=== PATIENT | male | born 1940 | race Caucasian/White ===

== ENCOUNTER → 2017-01-10 | Outpatient (REF) | payer MEDICARE, OTHER | LOC: M LAB REF 12:39 | PROVIDERS: ATTEND Nurse Practitioner Adult Health | DX: E83.52 Hypercalcemia (principal) ==

== ENCOUNTER → 2017-07-19 | Outpatient (REF) | payer MEDICARE, OTHER ==
[~2017-07-19] MED LIST: ASPRIN PO; COQ1200C2 PO; CYMB60CA3 PO; EYE-TAB2 PO; FISH500C PO; FLOM5CAP PO; LIPI20TA PO; MAGN500C PO; MULTTAB50 PO; VITA10006 PO; VITA200016 PO; VITATAB11 PO; [UNRECOGNIZED DRUG - CODE] PO
== END ==
LOC: M LAB REF 14:57
PROVIDERS: ATTEND Nurse Practitioner Adult Health
DX: E83.52 Hypercalcemia (principal); Z98.84 Bariatric surgery status

== ENCOUNTER 2017-09-07 10:14 | Day surgery (SDC) | payer MEDICARE, OTHER ==
--- NOTE | 2017-09-01 14:32 | CR ---
DATE OF CONSULTATION: 08/31/2017 Dr. Eneida Allen dictating a preoperative consultation on Андрей Burgos for Dr. Garcia for bilateral cataract extractions. Dear Jose: Thank you for asking me to see . Андрей Burgos in consultation prior to his bilateral cataract extractions. As you know, Mr. Ambrosio has a past medical history of CAD but denies any chest pain, palpitations, syncope or presyncope. Patient has had bilateral knee replacements, still very active, without limitations, keeping up with his grandchildren. He denies any chest pain, palpitations, syncope or presyncope. Patient has depression. He is on Cymbalta for this and feels it is well controlled. Patient has BPH. He is on Flomax. He denies any change in urologic symptoms. Patient had bariatric surgery 2007. He lost over 100 pounds. He has regained about 10 pounds. Tries to adhere to a healthy diet, exercise. REVIEW OF SYSTEMS: Otherwise negative. Denying any fevers or chills, chest pain or shortness of breath, nausea, vomiting. PAST MEDICAL HISTORY: 1. CAD status post anterior wall myocardial infarction (CO) followed by percutaneous transluminal coronary angioplasty (PTCA) of the left anterior descending (LAD). Last nuclear stress test 01/28/2017 showed no inducible disease, left ventricular ejection fraction (LVEF) 48%. Study was considered normal. 2. Hyperlipidemia. 3. Gastric bypass surgery 2007. 4. Bilateral total knee arthroplasties (TKAs) 2005. 5. Status post cholecystectomy. 6. Bilateral carpal tunnel. 7. Perforated right eardrum times three. 8. Status post appendectomy. 9. Skin cancer (CA) status post resection from lip. 10. Depression. MEDICATIONS: - aspirin 325 mg daily - coenzyme Q10 200 mg daily - Cymbalta 60 mg daily - ferrous sulfate 325 mg daily - fish oil 1000 mg two twice a day - Flomax 0.4 mg daily - ginkgo biloba 60 mg two daily - Lidoderm as needed, back pain - Lipitor 20 mg daily - magnesium 500 mg 1-2 a day - multivitamin two daily - Savision two daily - vitamin C 1000 mg daily - vitamin D 2000 two daily DRUG ALLERGIES: PENICILLIN, SULFA, MYCIN, which I assume is the ERYTHROMYCIN CLASS. 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 Never smoked. He occasionally consumes alcohol. FAMILY HISTORY: Mother in her 80s from lung cancer. Father in his 70s from lung cancer. He has one sister with chronic obstructive pulmonary disease (COPD). One brother who from complications of alcoholism and heart disease. PHYSICAL EXAMINATION: No acute distress. Vital signs are blood pressure 176/86, recheck 138/88, heart rate is 58. Weight is 190 with a body mass index (BMI) of 30, oxygen saturation after exertion is 98%. HEENT examination: Head is normocephalic. Neck is supple. Pupils equal, reactive to light. Extraocular movements are intact. He wears eye glasses and hearing aids. No thyromegaly, jugular venous distention (JVD), carotid bruits. Respiratory: Clear to auscultation, resonant to percussion. Cardiovascular: Regular rate and rhythm. No murmur, rub or gallop. Abdomen: Normoactive bowel sounds, soft, nontender. No hepatosplenomegaly. Extremities: Some early osteoarthritis (OA) changes of the lower extremities. Right upper extremity has an engorged tick at the shoulder level. Neurologically intact. LABORATORY DATA: 07/19/2017, patient had a B12 level of 1675, a normal CBC, med profile except for calcium of 10.2, liver except for bilirubin of 1.6, lipids except for a total cholesterol 108. Vitamin D is 61. His intact PTH is 48.5. EKG done today in my office shows sinus bradycardia, rate of 58, axis of 8 degrees. First-degree atrioventricular (AV) block. Normal QRS, QTc. Late R-wave progression with repolarization changes, but otherwise no atrioventricular abnormalities. The EKG is unchanged from previous EKG done 01/10/2017. IMPRESSION: Mr. Андрей Burgos, 76-year-old gentleman, known history of CAD, hyperlipidemia, age, has no other cardiovascular risk factors and is felt to be at low risk for cardiovascular complications from the proposed surgical intervention and is felt to be optimized. Patient risk can be further minimized by the following. 1. Hyperlipidemia. Take statin as usual the evening prior to surgery. Hold all supplements including aspirin and fish oil morning of surgery. 2. CAD. Clinically asymptomatic. Stress testing approximately 6 months ago showed no inducible disease. EKG is unchanged. As of above, hold all vitamin supplements including aspirin morning of surgery. Take statin as usual the evening prior to surgery. 3. Depression. Take Cymbalta after surgery as usual. Hold morning of surgery. 4. Low back pain. Continue as-needed use of Lidoderm. 5. BPH. Take Flomax as usual evening prior to surgery. 6. Status post gastric bypass surgery. Hold all vitamins morning of surgery. Of note, his B12 supplement was discontinued after the above labs. 7. Tick. Removed without complication during exam. Patient given prophylactic dose of doxycycline 200 mg by mouth times one. Patient will call if he develops any systemic symptoms or target lesion. Thank you for this consultation. Please call with any questions or concerns.
[~2017-09-07] VITALS: Ht 170.2 cm; Wt 85.7 kg
[~2017-09-07 10:14] MED LIST changes: +ACETAMINOPHEN 325 MG TAB PO PRN; +BSS with VANC/TOB/EPI for EYE CASES IR ONE; +CYCLOPENTOLATE 2% OPHTH SOLN 2ML BTL OS ONE; +LIDOCAINE 3.5 % 1ML OPHTH TOPICAL GEL OU ONE; +OFLOXACIN 0.3 % (OCUFLOX) OPTH SOL 5ML OS ONE; +PHENYLEPHRINE 2.5% OPHTH SOL 2ML OS ONE; +PROPARACAINE 0.5% OPHTH SOL 15ML OS PRN; +TROPICAMIDE 1% OPHTH SOLN 2ML OS ONE
[2017-09-07] MEDS ORDERED: TRIMETHOBENZAMIDE 300 MG CAP PO PRN (10:30)
[2017-09-07] MEDS ORDERED: KETOROLAC 0.5% OPHTH SOLN OS ONE (10:30)
[2017-09-07] MEDS ORDERED: TRIAMCINOLONE PRES FR 40 MG/ML 1ML(TRIESENCE)(OR EYE ONLY)(J3300 PER 1MG) As Ordered ONE (11:02)
[2017-09-07] MEDS ORDERED: POVIDONE-IODINE 5% OPHTH PREP SOL 30ML As Ordered ONE (11:02)
[2017-09-07] MEDS ORDERED: LIDOCAINE 1% SDV 5 ML VIAL As Ordered ONE (11:02)
[2017-09-07] MEDS ORDERED: MOXIFLOXACIN IN BSS 0.25MG/0.25ML INTRACAMERAL INJ (OR EYE ONLY)(J2280) As Ordered ONE (11:03)
[2017-09-07] MEDS ORDERED: HEALON DUET (HEALON 10MG/ML 0.55ML & HEALON ENDOCOAT 30MG/ML 0.85ML) As Ordered ONE (11:03)
[2017-09-07] MEDS ORDERED: MIDAZOLAM INJ 2 MG/2 ML VIAL (J2250) As Ordered ONE (11:36)
[2017-09-07] MEDS ORDERED: fentaNYL 100 MCG/2 ML INJECTION (J3010) As Ordered ONE (11:36)
[2017-09-07 12:25] VITALS: BP 140/80
--- NOTE | 2017-09-07 13:39 | RO ---
DATE OF PROCEDURE: 09/07/2017 PREOPERATIVE DIAGNOSIS: Cataract and myosis left eye. POSTOPERATIVE DIAGNOSIS: Cataract and myosis left eye. PROCEDURE: Femtosecond laser with phacoemulsification with intraocular lens implantation with induction of the Malyugin ring, IOL power used was 18 diopters, HOYA. SURGEON: Martita Garcia MD BENCH PRECISION ASSEMBLER: None. ANESTHESIA: COMPLICATIONS: None. DESCRIPTION OF PROCEDURE: The patient was brought to the operating room and laid in supine position. A lid speculum was placed, and patient was brought under the femtosecond laser. After the satisfactory placement of the patient interface, primary incision, secondary incision, and arcuate incisions with lens fragmentation was done without any complication per plan. The patients interface was then removed and lid speculum removed. Patient was placed under the microscope. The eye was prepped and draped in a sterile fashion for ophthalmic surgery. Lid speculum was placed. The secondary incision was opened, and EndoCoat was injected into the anterior chamber. The temporal clear corneal incision was then opened and capsulorrhexis removed, followed by hydrodissection. This was followed by phacoemulsification of the lens within the capsular bag. Cortical material was then aspirated, and Healon was injected into the capsular bag. Intraocular lens was then placed. Excess Healon was aspirated. Wound was hydrated. The lid speculum was removed, and patient was returned to the recovery room in stable condition. ADDENDUM: After the corneal incisions were opened, a Malyugin ring 7 mm was inserted under Healon, the iris from the capsulorrhexis because the pupil was very small. A 7 mm Malyugin ring was introduced and this ring was removed after placement of the intraocular lens.
== END 2017-09-07 12:35 | disposition home or self-care (01) ==
LOC: M SDC 10:14
PROVIDERS: ATTEND Ophthalmology
DX: H25.9 Unspecified age-related cataract (principal); H57.03 Miosis; I25.2 Old myocardial infarction; Z98.61 Coronary angioplasty status; N40.0 Benign prostatic hyperplasia without lower urinary tract symptoms; Z79.899 Other long term (current) drug therapy; Z88.0 Allergy status to penicillin; Z88.2 Allergy status to sulfonamides; Z79.82 Long term (current) use of aspirin
CPT/HCPCS: 66982; J2250; J2280; J3010; J3300; V2632

== ENCOUNTER 2017-09-28 10:40 | Day surgery (SDC) | payer MEDICARE, OTHER ==
[~2017-09-28] VITALS: Ht 167.6 cm; Wt 86.6 kg
[~2017-09-28 10:40] MED LIST changes: +CYCLOPENTOLATE 2% OPHTH SOLN 2ML BTL OD ONE; -CYCLOPENTOLATE 2% OPHTH SOLN 2ML BTL OS ONE; +OFLOXACIN 0.3 % (OCUFLOX) OPTH SOL 5ML OD ONE; -OFLOXACIN 0.3 % (OCUFLOX) OPTH SOL 5ML OS ONE; +PHENYLEPHRINE 2.5% OPHTH SOL 2ML OD ONE; -PHENYLEPHRINE 2.5% OPHTH SOL 2ML OS ONE; +PROPARACAINE 0.5% OPHTH SOL 15ML OD PRN; -PROPARACAINE 0.5% OPHTH SOL 15ML OS PRN; +TROPICAMIDE 1% OPHTH SOLN 2ML OD ONE; -TROPICAMIDE 1% OPHTH SOLN 2ML OS ONE
[2017-09-28] MEDS ORDERED: TRIAMCINOLONE PRES FR 40 MG/ML 1ML(TRIESENCE)(OR EYE ONLY)(J3300 PER 1MG) As Ordered ONE (10:59)
[2017-09-28] MEDS ORDERED: LIDOCAINE 1% SDV 5 ML VIAL As Ordered ONE (10:59)
[2017-09-28] MEDS ORDERED: POVIDONE-IODINE 5% OPHTH PREP SOL 30ML As Ordered ONE (10:59)
[2017-09-28] MEDS ORDERED: HEALON DUET (HEALON 10MG/ML 0.55ML & HEALON ENDOCOAT 30MG/ML 0.85ML) As Ordered ONE (11:00)
[2017-09-28] MEDS ORDERED: TRIMETHOBENZAMIDE 300 MG CAP PO PRN (11:00)
[2017-09-28] MEDS ORDERED: LIDOCAINE 1% MDV 20ML VIAL SQ PRN (11:00)
[2017-09-28] MEDS ORDERED: MOXIFLOXACIN IN BSS 0.25MG/0.25ML INTRACAMERAL INJ (OR EYE ONLY)(J2280) As Ordered ONE (11:00)
[2017-09-28] MEDS ORDERED: fentaNYL 100 MCG/2 ML INJECTION (J3010) As Ordered ONE (11:53)
[2017-09-28] MEDS ORDERED: MIDAZOLAM INJ 2 MG/2 ML VIAL (J2250) As Ordered ONE (11:53)
--- NOTE | 2017-09-28 12:44 | RO ---
DATE OF PROCEDURE: 09/28/2017 PREPROCEDURE DIAGNOSIS: Cataract of right eye. POSTPROCEDURE DIAGNOSIS: Cataract of right eye. PROCEDURE: Femtosecond laser and phacoemulsification of the intraocular lens with lens implantation right eye. IOL power used was HOYA, +17.5. SURGEON: Martita Garcia MD COURTESY DRIVER: None. ANESTHESIA: Local IV standby. FINDINGS: Cataract of right eye. COMPLICATIONS: None. DESCRIPTION OF PROCEDURE: The patient was brought to the operating room and laid in supine position. A lid speculum was placed, and patient was brought under the femtosecond laser. After the satisfactory placement of the patient interface, primary incision, secondary incision, and arcuate incisions with lens fragmentation was done without any complication per plan. The patients interface was then removed and lid speculum removed. Patient was placed under the microscope. The eye was prepped and draped in a sterile fashion for ophthalmic surgery. Lid speculum was placed. The secondary incision was opened, and EndoCoat was injected into the anterior chamber. The temporal clear corneal incision was then opened and capsulorrhexis removed, followed by hydrodissection. This was followed by phacoemulsification of the lens within the capsular bag. Cortical material was then aspirated, and Healon was injected into the capsular bag. Intraocular lens was then placed. Excess Healon was aspirated. Wound was hydrated. The lid speculum was removed, and patient was returned to the recovery room in stable condition.
[2017-09-28 12:50] VITALS: BP 153/74
== END 2017-09-28 13:15 | disposition home or self-care (01) ==
LOC: M SDC 10:40
PROVIDERS: ATTEND Ophthalmology
DX: H26.9 Unspecified cataract (principal); I10 Essential (primary) hypertension; I25.2 Old myocardial infarction; Z95.5 Presence of coronary angioplasty implant and graft; E78.00 Pure hypercholesterolemia, unspecified; M19.90 Unspecified osteoarthritis, unspecified site; F32.9 Major depressive disorder, single episode, unspecified; G47.30 Sleep apnea, unspecified; Z88.0 Allergy status to penicillin; Z88.1 Allergy status to other antibiotic agents; Z88.2 Allergy status to sulfonamides; Z79.899 Other long term (current) drug therapy; Z79.82 Long term (current) use of aspirin
CPT/HCPCS: 66984; J2250; J2280; J3010; J3300; V2632

== ENCOUNTER → 2017-12-22 | Outpatient (REF) | payer MEDICARE, OTHER | LOC: M LAB REF 12:24 | DX: R05 Cough (principal); J06.9 Acute upper respiratory infection, unspecified | CPT/HCPCS: 87633 ==

== ENCOUNTER 2018-03-10 17:27 | Emergency (ER) | payer MEDICARE, OTHER ==
[2018-03-10 16:14] LABS: BASO # 0.1 10^3/uL (0.0-0.2); BASO % 0.9 % (0.0-1.0); EOS # 0.2 10^3/uL (0.0-0.50); EOS % 2.6 % (0.0-3.0); HEMATOCRIT 45.7 % (42.0-52.0); HEMOGLOBIN 15.5 g/dl (13.5-17.5); IMMATURE GRANULOCYTE % 0.3 % (0-3.0); LYMPH # 1.7 10^3/uL (1.5-4.5); LYMPH % 24.4 % (24.0-44.0); MEAN CORPUSCULAR HEMOGLOBIN 31.1 pg (27.0-33.0); MEAN CORPUSCULAR HGB CONC 33.9 g/dl (32.0-36.5); MEAN CORPUSCULAR VOLUME 91.6 fl (80.0-96.0); MONO # 0.7 10^3/uL (0.0-0.8); MONO % 9.8 % (0.0-5.0); NEUTROPHILS # 4.4 10^3/uL (1.8-7.7); PLATELET COUNT, AUTOMATED 246 10^3/uL (150-450); RED BLOOD COUNT 4.99 10^6/uL (4.30-6.10); RED CELL DISTRIBUTION WIDTH 13.9 % (11.5-14.5)
[2018-03-10 16:29] LABS: ALBUMIN 4.2 GM/DL (3.2-5.2); ALBUMIN/GLOBULIN RATIO 1.35 (1.00-1.93); ALKALINE PHOSPHATASE 108 U/L (45-117); ALT/SGPT 51 U/L (12-78); ANION GAP 7 MEQ/L (8-16); AST/SGOT 55 U/L (7-37); BILIRUBIN,DIRECT 0.3 MG/DL (0.0-0.2); BILIRUBIN,TOTAL 1.4 MG/DL (0.2-1.0); BLOOD UREA NITROGEN 36 MG/DL (7-18); CALCIUM LEVEL 9.1 MG/DL (8.8-10.2); CARBON DIOXIDE LEVEL 26 MEQ/L (21-32); CHLORIDE LEVEL 108 MEQ/L (98-107); CPK CREATINE PHOSPHOKINASE 895 U/L (39-308); CREATININE FOR GFR 1.09 MG/DL (0.70-1.30); GLOMERULAR FILTRATION RATE > 60.0 (>42); GLUCOSE, FASTING 111 MG/DL (70-100); LIPASE 341 U/L (73-393); POTASSIUM SERUM 4.3 MEQ/L (3.5-5.1); SODIUM LEVEL 141 MEQ/L (136-145); TOTAL PROTEIN 7.3 GM/DL (6.4-8.2); TROPONIN I < 0.02 NG/ML (< 0.10)
[2018-03-10 16:31] LABS: INR 1.07; PROTHROMBIN TIME 14.1 SECONDS (12.4-14.5)
[2018-03-10 16:34] LABS: CK-MB VALUE MASS 5.1 NG/ML (<3.6); MB/CK RELATIVE INDEX 0.56 (< OR =4)
[2018-03-10] MEDS: NS 1,000 ML IV (17:00)
[2018-03-10 19:50] LABS: CK-MB VALUE MASS 4.1 NG/ML (<3.6); CPK CREATINE PHOSPHOKINASE 722 U/L (39-308); MB/CK RELATIVE INDEX 0.56 (< OR =4); TROPONIN I 0.02 NG/ML (< 0.10)
== END 2018-03-10 20:27 | disposition home or self-care (01) ==
LOC: M ED 17:27
DX: E86.0 Dehydration (principal); M62.82 Rhabdomyolysis; I95.1 Orthostatic hypotension; I25.10 Atherosclerotic heart disease of native coronary artery without angina pectoris; E78.5 Hyperlipidemia, unspecified; Z98.84 Bariatric surgery status; Z88.1 Allergy status to other antibiotic agents; Z88.0 Allergy status to penicillin; Z88.2 Allergy status to sulfonamides; Z79.899 Other long term (current) drug therapy; Z79.82 Long term (current) use of aspirin
CPT/HCPCS: 71045

== ENCOUNTER → 2018-06-07 | Outpatient (REF) | payer MEDICARE, OTHER ==
[2018-06-07 13:13] LABS: VITAMIN B12 LEVEL 659 PG/ML (247-911)
[2018-06-15 00:06] LABS: VITAMIN A, RETINOL LEVEL 48.6 ug/dL (36.4-108.0)
== END ==
LOC: M LAB REF 12:01
DX: Z98.84 Bariatric surgery status (principal)
CPT/HCPCS: 82607

== ENCOUNTER → 2018-08-10 | Outpatient (REF) | payer MEDICARE, OTHER ==
[2018-08-10 14:14] LABS: INFLUENZA A AMPLIFICATION NEGATIVE (NEGATIVE); INFLUENZA B AMPLIFICATION NEGATIVE (NEGATIVE)
== END ==
LOC: M LAB REF 12:29
DX: R50.9 Fever, unspecified (principal); J06.9 Acute upper respiratory infection, unspecified
CPT/HCPCS: 87502

== ENCOUNTER → 2019-02-27 | Outpatient (REF) | payer MEDICARE, OTHER ==
[~2019-02-27] MED LIST changes: -ACETAMINOPHEN 325 MG TAB PO PRN; -BSS with VANC/TOB/EPI for EYE CASES IR ONE; +CALC600T31 PO; -CYCLOPENTOLATE 2% OPHTH SOLN 2ML BTL OD ONE; +FLOM0.4C39 PO; -FLOM5CAP PO; -LIDOCAINE 3.5 % 1ML OPHTH TOPICAL GEL OU ONE; -OFLOXACIN 0.3 % (OCUFLOX) OPTH SOL 5ML OD ONE; -PHENYLEPHRINE 2.5% OPHTH SOL 2ML OD ONE; -PROPARACAINE 0.5% OPHTH SOL 15ML OD PRN; -TROPICAMIDE 1% OPHTH SOLN 2ML OD ONE
== END ==
LOC: M LAB REF 16:47
PROVIDERS: ATTEND Nurse Practitioner Adult Health
DX: R31.0 Gross hematuria (principal)

== ENCOUNTER 2019-03-16 09:32 | Emergency (ER) | payer MEDICARE, OTHER ==
[~2019-03-16] VITALS: Ht 167.6 cm; Wt 90.9 kg
[2019-03-16] MEDS ORDERED: GI COCKTAIL 50ML BTL(HYOSCYAMINE/MAALOX/LIDOCAINE VISCOUS)(1:3:1) PO ONE (10:00)
[2019-03-16 10:06] LABS: BASO # 0.1 10^3/uL (0.0-0.2); BASO % 0.9 % (0.0-1.0); EOS # 0.2 10^3/uL (0.0-0.50); EOS % 3.1 % (0.0-3.0); HEMATOCRIT 48.2 % (42.0-52.0); HEMOGLOBIN 15.7 g/dl (13.5-17.5); LYMPH # 1.8 10^3/uL (1.5-4.5); LYMPH % 31.7 % (24.0-44.0); MEAN CORPUSCULAR HEMOGLOBIN 31.2 pg (27.0-33.0); MEAN CORPUSCULAR HGB CONC 32.6 g/dl (32.0-36.5); MEAN CORPUSCULAR VOLUME 95.6 fl (80.0-96.0); MONO # 0.3 10^3/uL (0.0-0.8); NEUTROPHILS # 3.2 10^3/uL (1.8-7.7); NEUTROPHILS % 58.1 % (36.0-66.0); PLATELET COUNT, AUTOMATED 226 10^3/uL (150-450); RED BLOOD COUNT 5.04 10^6/uL (4.30-6.10); WHITE BLOOD COUNT 5.5 10^3/uL (4.0-10.0)
[2019-03-16] MEDS ORDERED: ASPIRIN 325 MG TAB PO ONE (10:15)
[2019-03-16 10:18] LABS: INR 1.17; PROTHROMBIN TIME 15.1 SECONDS (12.1-14.4)
[2019-03-16 10:19] LABS: PARTIAL THROMBOPLASTIN TIME 38.8 SECONDS (25.4-37.6)
--- NOTE | 2019-03-16 10:26 | REP ---
CHEST, PORTABLE: AP portable view of the chest is performed and compared to prior study of 02/27/2019. There is no acute infiltrate or pulmonary edema. The heart is upper limits of normal in size. There is some tortuosity of the thoracic aorta. The mediastinal silhouette is unchanged. IMPRESSION: No acute pulmonary disease. Electronically Signed by Zachariah Orellana MD 03/20/2019 09:56 A
[2019-03-16] MEDS ORDERED: ZINC1TAB2 PO (10:33)
[2019-03-16] MEDS ORDERED: CO Q10CA PO (10:33)
[2019-03-16] MEDS ORDERED: ATOR1TAB19 PO (10:33)
[2019-03-16] MEDS ORDERED: FISH1000 PO (10:33)
[2019-03-16] MEDS ORDERED: DULO1CAP2 PO (10:33)
[2019-03-16] MEDS ORDERED: ELIQ5TAB PO (10:33)
[2019-03-16] MEDS ORDERED: vitamin B12 PO (10:33)
[2019-03-16] MEDS ORDERED: D 50CAP3 PO (10:33)
[2019-03-16 10:37] LABS: ALBUMIN 3.6 GM/DL (3.2-5.2); ALT/SGPT 58 U/L (12-78); BILIRUBIN,DIRECT 0.4 MG/DL (0.0-0.2); BILIRUBIN,TOTAL 1.7 MG/DL (0.2-1.0); BLOOD UREA NITROGEN 17 MG/DL (7-18); CALCIUM LEVEL 8.6 MG/DL (8.8-10.2); CARBON DIOXIDE LEVEL 29 MEQ/L (21-32); CHLORIDE LEVEL 107 MEQ/L (98-107); CPK CREATINE PHOSPHOKINASE 125 U/L (39-308); CREATININE FOR GFR 0.94 MG/DL (0.70-1.30); FREE T4 0.84 NG/DL (0.76-1.46); GLOMERULAR FILTRATION RATE > 60.0 (>42); GLUCOSE, FASTING 100 MG/DL (70-100); LIPASE 127 U/L (73-393); MAGNESIUM LEVEL 2.3 MG/DL (1.8-2.4); MB/CK RELATIVE INDEX 1.92 (< OR =4); POTASSIUM SERUM 4.4 MEQ/L (3.5-5.1); SODIUM LEVEL 142 MEQ/L (136-145); TOTAL PROTEIN 6.8 GM/DL (6.4-8.2); TROPONIN I < 0.02 NG/ML (< 0.10)
--- NOTE | 2019-03-16 11:40 | REP ---
Clinical: Acute epigastric pain. Technique: Real time bethea scale ultrasound examination using curved array transducer. Findings: The liver is heterogeneous but without obvious focal hepatic lesion identified. The pancreas is incompletely evaluated due to interposed bowel gas but visualized portions appear normal. The patient is status post cholecystectomy with mild compensatory biliary ductal dilatation including common bile duct measuring 11.8 mm. 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 No hydronephrosis. No ascites. Impression: 1. 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 2. Previous cholecystectomy with mild presumed compensatory biliary ductal dilatation. Electronically Signed by Steven Rincon MD 03/16/2019 11:31 A
[2019-03-16 14:47] LABS: CPK CREATINE PHOSPHOKINASE 87 U/L (39-308); MB/CK RELATIVE INDEX 1.95 (< OR =4)
[2019-03-16 15:20] LABS: TROPONIN I < 0.02 NG/ML (< 0.10)
[2019-03-16] MEDS ORDERED: METO25TA4 PO (16:11)
[2019-03-16 16:15] VITALS: BP 160/99
[2019-03-16] MEDS ORDERED: METOPROLOL TART 25 MG TABLET PO ONE (16:15)
[2019-03-16 16:33] VITALS: BP 167/93
--- NOTE | 2019-03-16 20:53 | ECGEPIP ---
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
--- NOTE | 2019-03-16 21:00 | ECGEPIP ---
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
--- NOTE | 2019-03-17 09:06 | ED PDOC ---
Post-Departure Follow-Up jeanine cobb faxed formal report of abdominal us for fu Souleymane Salinas MD March 17, 2019 09:06
== END 2019-03-16 16:42 | disposition home or self-care (01) ==
LOC: M ED 09:32
DX: I48.91 Unspecified atrial fibrillation (principal); R07.89 Other chest pain; E78.5 Hyperlipidemia, unspecified; I25.10 Atherosclerotic heart disease of native coronary artery without angina pectoris; I25.2 Old myocardial infarction; Z86.73 Personal history of transient ischemic attack (TIA), and cerebral infarction without residual deficits; Z79.01 Long term (current) use of anticoagulants; Z79.899 Other long term (current) drug therapy; Z88.0 Allergy status to penicillin; Z88.1 Allergy status to other antibiotic agents; Z88.2 Allergy status to sulfonamides

== ENCOUNTER → 2019-03-27 | Outpatient (REF) | payer MEDICARE, OTHER ==
[~2019-03-27] MED LIST changes: +ATOR1TAB19 PO; +CO Q10CA PO; +D 50CAP3 PO; +DULO1CAP2 PO; +ELIQ5TAB PO; +FISH1000 PO; +METO25TA4 PO; +ZINC1TAB2 PO; +vitamin B12 PO
[2019-03-27 18:53] LABS: APPEARANCE, URINE CLOUDY (CLEAR); BACTERIA, URINE AUTO NEGATIVE (NEGATIVE); BILIRUBIN, URINE AUTO NEGATIVE (NEGATIVE); BLOOD, URINE BLOOD 3+ (NEGATIVE); COLOR, URINE YELLOW (YELLOW); GLUCOSE, URINE (UA) AUTO NEGATIVE (NEGATIVE); KETONE, URINE AUTO NEGATIVE (NEGATIVE); LEUKOCYTE ESTERASE, URINE AUTO NEGATIVE (NEGATIVE); NITRITE, URINE AUTO NEGATIVE (NEGATIVE); PROTEIN, URINE AUTO 1+ mg/dL (NEGATIVE); RBC, URINE AUTO TNTC /HPF (0-3); SPECIFIC GRAVITY URINE AUTO 1.014 (1.002-1.035); SQUAMOUS EPITHELIAL CELL UR AU 0 /HPF (0-6); WBC, URINE AUTO 3 /HPF (0-3)
== END ==
LOC: M SMT 17:19
PROVIDERS: ATTEND Urology
DX: R31.0 Gross hematuria (principal)
CPT/HCPCS: 81001; 87088; 87186; 88108; G0463

== ENCOUNTER → 2019-03-28 | Outpatient (CLI) | payer MEDICARE, OTHER ==
[~2019-03-28] MED LIST changes: +ISOVUE-370 76% 100ML VIAL (Q9967) As Ordered ONE
--- NOTE | 2019-03-28 13:18 | REP ---
CT UROGRAM: TECHNIQUE: Axial noncontrast images through the abdomen followed by contrast-enhanced images through the abdomen and pelvis using 100 mL Isovue 370 intravenous contrast material, with coronal and sagittal reformations. Including 3D MIP reconstruction images, sagittal and coronal reconstruction images. COMPARISON: Noncontrast CT 02/27/2019. Visualized lung bases demonstrate no infiltrate. Precontrast images show no left renal calculus. There is a right sided 4 mm calculus at the ureteropelvic junction causing mild right hydronephrosis. Postcontrast images show a dominant mildly hyperdense cyst which does not enhance in the mid right kidney 3.7 cm in maximum diameter. In the right lower pole there are three smaller cysts identified. These are also mildly hyperdense and do not enhance. There is mild periureteral stranding proximally on the right. Ureters are otherwise unremarkable as is the bladder, with no filling defect in the bladder and no evidence of bladder calculus. Subcentimeter cyst is seen in the left lobe as well as in the right lobe of the liver. The patient has had a prior cholecystectomy. There is expected prominence of the common bile duct. Spleen, adrenals, and pancreas demonstrate no significant abnormality. There is no abdominal aortic aneurysm with mild scattered atherosclerotic calcifications. There is no adenopathy. There is no free air or free fluid. There is no bowel wall thickening. There are scattered diverticula of the colon. There is no evidence of acute diverticulitis. No pelvic mass is seen. There are degenerative changes of the spine. 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 No spondylolisthesis is noted. IMPRESSION: There is a 4 mm calculus at the right ureteropelvic junction causing mild right hydronephrosis. No other evidence of renal, ureteral or bladder calculus. No left hydronephrosis. There are cysts noted in the lower pole of the right kidney which are somewhat hyperdense, but do not enhance. Status post cholecystectomy. Scattered colonic diverticula without acute diverticulitis. Electronically Signed by Zachariah Orellana MD 03/29/2019 09:02 A
== END ==
LOC: M RAD 09:35
PROVIDERS: ATTEND Urology
DX: R31.0 Gross hematuria (principal); N28.1 Cyst of kidney, acquired; K76.89 Other specified diseases of liver; Z90.49 Acquired absence of other specified parts of digestive tract; I70.0 Atherosclerosis of aorta; N13.2 Hydronephrosis with renal and ureteral calculous obstruction
CPT/HCPCS: 74178; Q9967

== ENCOUNTER → 2019-04-17 | Outpatient (CLI) | payer MEDICARE, OTHER ==
[~2019-04-17] MED LIST changes: +ASPI81TA26 PO; +CO Q1CAP2 PO; +CYMB1CAP4 PO; -DULO1CAP2 PO; +DULO1CAP5 PO; +FERR325T3 PO; -ISOVUE-370 76% 100ML VIAL (Q9967) As Ordered ONE; +MAGN1CAP PO; +MINO0.1C PO; +MULTCAP PO; +NORC1TAB8 PO; +PRESCAP PO; +VITA500T PO; +VITA500T40 PO; +VITATAB73 PO
--- NOTE | 2019-04-17 11:09 | REP ---
Clinical: Nephrolithiasis. Technique: Single supine view of the abdomen and pelvis. Comparison: CT dated 03/28/2019. Findings: Evaluation of the urinary tract system is significantly limited due to technique and overlying bowel gas pattern. The previously noted calculus in the right ureteropelvic junction on CT dated 03/28/2019 is not definitively visualized. The bowel gas pattern suggests fecal stasis. Surgical clips noted in the upper abdomen. Skeletal structures demonstrate degenerative changes. Phleboliths noted in the pelvis. Impression: Limited evaluation for urinary tract calcifications. Electronically Signed by Steven Rincon MD 04/17/2019 11:00 A
[2019-04-17 13:38] LABS: AMORPHOUS SEDIMENT SMALL (NEGATIVE); APPEARANCE, URINE CLOUDY (CLEAR); BACTERIA, URINE AUTO 1+ (NEGATIVE); BILIRUBIN, URINE AUTO NEGATIVE (NEGATIVE); BLOOD, URINE BLOOD 3+ (NEGATIVE); COLOR, URINE AMBER (YELLOW); GLUCOSE, URINE (UA) AUTO NEGATIVE (NEGATIVE); KETONE, URINE AUTO NEGATIVE (NEGATIVE); LEUKOCYTE ESTERASE, URINE AUTO TRACE (NEGATIVE); MUCUS, URINE SMALL (NEGATIVE); NITRITE, URINE AUTO NEGATIVE (NEGATIVE); PROTEIN, URINE AUTO 1+ mg/dL (NEGATIVE); RBC, URINE AUTO TNTC /HPF (0-3); SPECIFIC GRAVITY URINE AUTO 1.017 (1.002-1.035); SQUAMOUS EPITHELIAL CELL UR AU 0 /HPF (0-6); UROBILINOGEN, URINE AUTO 0.2 mg/dL (0.0-2.0); WBC, URINE AUTO 11 /HPF (0-3)
== END ==
LOC: M SMT 10:39
PROVIDERS: ATTEND Urology
DX: N20.1 Calculus of ureter (principal); N20.0 Calculus of kidney; I87.8 Other specified disorders of veins
CPT/HCPCS: 74018; 81001; 87086; G0463

== ENCOUNTER → 2019-05-02 | Outpatient (CLI) | payer MEDICARE, OTHER ==
[2019-05-02 10:07] LABS: HEMATOCRIT 47.3 % (42.0-52.0); HEMOGLOBIN 15.8 g/dl (13.5-17.5); MEAN CORPUSCULAR HEMOGLOBIN 32.1 pg (27.0-33.0); MEAN CORPUSCULAR HGB CONC 33.4 g/dl (32.0-36.5); MEAN CORPUSCULAR VOLUME 96.1 fl (80.0-96.0); PLATELET COUNT, AUTOMATED 189 10^3/uL (150-450); RED BLOOD COUNT 4.92 10^6/uL (4.30-6.10); WHITE BLOOD COUNT 5.5 10^3/uL (4.0-10.0)
[2019-05-02 10:36] LABS: INR 1.29; PROTHROMBIN TIME 15.8 SECONDS (11.8-14.0)
[2019-05-02 10:37] LABS: PARTIAL THROMBOPLASTIN TIME 40.2 SECONDS (25.0-38.4)
[2019-05-02 10:38] LABS: BLOOD UREA NITROGEN 21 MG/DL (7-18); CALCIUM LEVEL 8.9 MG/DL (8.8-10.2); CARBON DIOXIDE LEVEL 29 MEQ/L (21-32); CHLORIDE LEVEL 107 MEQ/L (98-107); CREATININE FOR GFR 0.93 MG/DL (0.70-1.30); GLOMERULAR FILTRATION RATE > 60.0 (>42); GLUCOSE, FASTING 89 MG/DL (70-100); POTASSIUM SERUM 4.8 MEQ/L (3.5-5.1); SODIUM LEVEL 142 MEQ/L (136-145)
== END ==
LOC: M SMT 08:56
PROVIDERS: ATTEND Urology
DX: Z01.818 Encounter for other preprocedural examination (principal); N20.1 Calculus of ureter

== ENCOUNTER 2019-05-11 06:00 | Day surgery (SDC) | payer MEDICARE, OTHER ==
[~2019-05-11] VITALS: Ht 167.6 cm; Wt 91.1 kg
[2019-05-11] MEDS ORDERED: LIDOCAINE 2% INJ 100 MG/5 ML SDV (FOR ANES.) As Ordered ONE (06:58)
[2019-05-11] MEDS ORDERED: PROPOFOL 200 MG/20 ML VIAL As Ordered ONE (06:58)
[2019-05-11] MEDS ORDERED: ONDANSETRON 4MG/2ML VIAL (J2405) As Ordered ONE (06:58)
[2019-05-11] MEDS ORDERED: dexameTHASONE 4 MG/ML 1ML VIAL (J1100) As Ordered ONE (06:59)
[2019-05-11] MEDS ORDERED: DESFLURANE 240 ML INHALANT As Ordered ONE (06:59)
[2019-05-11] MEDS ORDERED: CONRAY-60 60% 50ML VIAL (Q9961) As Ordered ONE (07:00)
[2019-05-11] MEDS ORDERED: LevoFLOXacin IV 500 MG in APPROPRIATE DILUENT 1 EA IV ONE (07:00)
[2019-05-11] MEDS ORDERED: LR 1,000 ML IV ONE (07:00)
[2019-05-11] MEDS ORDERED: MIDAZOLAM INJ 2 MG/2 ML VIAL (J2250) As Ordered ONE (07:06)
[2019-05-11] MEDS ORDERED: fentaNYL 100 MCG/2 ML INJECTION (J3010) As Ordered ONE ×2 (07:06→09:04)
[2019-05-11] MEDS ORDERED: BUPIVACAINE HCL 0.25% 30 ML VIAL As Ordered ONE (08:11)
[2019-05-11] MEDS ORDERED: LIDOCAINE 1% SDV INJ 30 ML VIAL As Ordered ONE (08:11)
[2019-05-11] MEDS ORDERED: ePHEDrine SULFATE 25 MG/5 ML(5MG/ML) SYRINGE As Ordered ONE (08:15)
[2019-05-11] MEDS ORDERED: ACETAMINOPHEN 1000MG 100ML IV BTL (OFIRMEV) (J0131 PER 10MG) As Ordered ONE (08:32)
[2019-05-11] MEDS ORDERED: fentaNYL 100 MCG/2 ML INJECTION (J3010) IV PRN (10:15)
[2019-05-11] MEDS ORDERED: PERCOCET 5MG/325MG TAB PO PRN ×2 (10:15→10:30)
[2019-05-11] MEDS ORDERED: HYDROMORPHONE HCL 0.5 MG/ 0.5 ML SYRINGE (J1170 PER 1) IV PRN (10:15)
[2019-05-11] MEDS ORDERED: LR 1,000 ML IV SCH (10:15)
[2019-05-11] MEDS ORDERED: ONDANSETRON 4MG/2ML VIAL (J2405) IV PRN (10:15)
[2019-05-11 12:40] VITALS: BP 114/69
[2019-05-11] MEDS ORDERED: PERCOCET 5MG/325MG TAB PO ONE (13:30)
--- NOTE | 2019-05-14 14:53 | RO ---
DATE OF PROCEDURE: 05/11/2019 PREPROCEDURE DIAGNOSIS: Right ureteral stone. POSTPROCEDURE DIAGNOSIS: Right ureteral stone, urethral stricture. PROCEDURE PERFORMED: Open cystotomy with suprapubic catheter placement, cystoscopy with direct vision internal urethrotomy. SURGEON: Tima Cotto MD SAMPLE CASE PORTER: None. ANESTHESIA: General. OPERATIVE INDICATION: This is a 78-year-old male who was brought to the operating room today for treatment of a right ureteral stone and on cystoscopy was found to have a completely obliterated pendulous urethra. DESCRIPTION OF PROCEDURE: The patient was brought to the operating room and general anesthesia was induced. Prophylactic antibiotics were infused. The patient was placed in the dorsal lithotomy position and prepped and draped in the usual sterile fashion. At this point, I inserted a rigid cystoscope into the urethra and advanced it in and in the pendulous urethra he had an extremely narrow urethral stricture. There did appear to be a tiny hole which could have potentially been a lumen, but I could not get the wire through it. At this point, I traded the cystoscope out for a urethrotome and used a cold knife to try to cut through that small area and I was able to advance the scope in, but approximately 2 cm was opened and we did not actually find the lumen of the urethra. Because of this, the decision was made to stop and place a suprapubic catheter. The patient was then taken out of the dorsal lithotomy position and placed supine. He was reprepped and draped in the suprapubic area of his abdomen. At this point, the bladder was full. Before doing this, I went out and spoke to his and explained the situation and she noted understanding. I then made an approximately 4 cm suprapubic incision and dissected down through subcutaneous layers. The fascia was then opened with electrocautery. After opening the fascia, the rectus muscles were gently spread. I then opened the suprapubic fat overlying the bladder and it was readily visible as it was distended. I then inserted a spinal needle into the bladder and aspirated out irrigation fluid. Once this was done, a #2-0 chromic pursestring stitch was placed through the dome of the bladder. I made a cystotomy using electrocautery right in the middle of the pursestring stitch. Once that was done, a 20 Kiswahili catheter was inserted into the bladder and the balloon was filled with 7 mL of sterile water. The pursestring stitch was then tied down around the catheter. After that was done, I irrigated the operative field with saline. At this point, I then closed the fascia with several figure-of-8 #1 nonlooped PDS sutures. The operative field was then irrigated again and then the subcutaneous fat was reapproximated with interrupted #2-0 Vicryl sutures. Next, the skin was closed with running #4-0 Monocryl subcuticular stitch around the catheter. The suprapubic catheter was further secured to the skin with a #2-0 Prolene suture and then DERMABOND was applied and this marked the conclusion of the procedure. The patient was then awakened from anesthesia and transferred to the recovery room in stable condition. ESTIMATED BLOOD LOSS: 10 mL. COMPLICATIONS: None. SPECIMENS: None. PLAN: I will have the patient follow-up in the clinic in approximately one week for a postoperative visit. HESHAM
== END 2019-05-11 13:20 | disposition home or self-care (01) ==
LOC: M SDC 06:00
PROVIDERS: ATTEND Urology
DX: N20.1 Calculus of ureter (principal); N35.919 Unspecified urethral stricture, male, unspecified site; I48.91 Unspecified atrial fibrillation; I25.10 Atherosclerotic heart disease of native coronary artery without angina pectoris; I25.2 Old myocardial infarction; G47.30 Sleep apnea, unspecified; I10 Essential (primary) hypertension; E78.5 Hyperlipidemia, unspecified; N40.0 Benign prostatic hyperplasia without lower urinary tract symptoms; D64.9 Anemia, unspecified; Z98.84 Bariatric surgery status; Z95.5 Presence of coronary angioplasty implant and graft; Z79.82 Long term (current) use of aspirin; Z79.01 Long term (current) use of anticoagulants; Z79.899 Other long term (current) drug therapy
CPT/HCPCS: 51040; 52276; C1769; J0131; J1100; J1956; J2250; J2405; J3010; Q9961

== ENCOUNTER → 2019-05-30 | Outpatient (CLI) | payer MEDICARE, OTHER ==
--- NOTE | 2019-05-31 07:34 | REP ---
REASON FOR EXAM: History of nephrolithiasis. COMPARISON: Multiple, the latest 03/28/2019. There is no change in the lung bases. The proximal ureterolith seen on the right previously is now in the distal right ureter. The degree of hydronephrosis seen previously on the right is unchanged. Proximal periureteral edema is noted status quo. There is a calcification in the left kidney, which is unchanged. There are bilateral hyperdense renal cysts, status quo. There is no change in the liver and spleen. There is no change in the pancreas and adrenal glands. Postoperative changes are seen in the abdomen status quo. There is no change in the abdominal aorta or para-aortic regions. There is no change in the bowel loops or their mesenteries. No free fluid or free air has developed in the abdomen or pelvis. There is a suprapubic catheter in the urinary bladder. This represents a change from the prior exam. There is no change in the osseous structures. IMPRESSION: 1. The right-sided ureterolith seen on the prior exam is now in the distal right ureter with resultant findings as described above. 2. Other findings as described above. Electronically Signed by Alexandre Spencer DO 05/31/2019 11:13 A
== END ==
LOC: M RAD 14:21
PROVIDERS: ATTEND Student in an Organized Health Care Education/Training Program
DX: N20.0 Calculus of kidney (principal); Z96.0 Presence of urogenital implants

== ENCOUNTER → 2019-06-18 | Outpatient (REF) | payer MEDICARE, OTHER | LOC: M SMT 12:39 | PROVIDERS: ATTEND Urology | DX: N39.0 Urinary tract infection, site not specified (principal); Z93.59 Other cystostomy status ==

== ENCOUNTER → 2019-07-09 | Outpatient (REF) | payer MEDICARE, OTHER ==
[2019-07-09 13:43] LABS: APPEARANCE, URINE CLEAR (CLEAR); BACTERIA, URINE AUTO 1+ (NEGATIVE); BILIRUBIN, URINE AUTO NEGATIVE (NEGATIVE); BLOOD, URINE BLOOD 3+ (NEGATIVE); COLOR, URINE YELLOW (YELLOW); GLUCOSE, URINE (UA) AUTO NEGATIVE (NEGATIVE); KETONE, URINE AUTO NEGATIVE (NEGATIVE); LEUKOCYTE ESTERASE, URINE AUTO 1+ (NEGATIVE); MUCUS, URINE SMALL (NEGATIVE); NITRITE, URINE AUTO NEGATIVE (NEGATIVE); PROTEIN, URINE AUTO NEGATIVE (NEGATIVE); RBC, URINE AUTO TNTC /HPF (0-3); SPECIFIC GRAVITY URINE AUTO 1.008 (1.002-1.035); SQUAMOUS EPITHELIAL CELL UR AU 0 /HPF (0-6); WBC, URINE AUTO 28 /HPF (0-3)
== END ==
LOC: M LAB REF 13:13
PROVIDERS: ATTEND Student in an Organized Health Care Education/Training Program
DX: R68.83 Chills (without fever) (principal)

== ENCOUNTER 2019-07-21 09:20 | Emergency (ER) | payer MEDICARE, OTHER ==
[~2019-07-21] VITALS: Ht 167.6 cm; Wt 87.3 kg
[2019-07-21 11:04] LABS: BASO # 0.1 10^3/uL (0.0-0.2); BASO % 0.7 % (0.0-1.0); EOS # 0.3 10^3/uL (0.0-0.5); EOS % 4.7 % (0.0-3.0); HEMATOCRIT 44.1 % (42.0-52.0); HEMOGLOBIN 14.5 g/dl (13.5-17.5); LYMPH # 1.6 10^3/uL (1.5-5.0); LYMPH % 22.7 % (24.0-44.0); MEAN CORPUSCULAR HEMOGLOBIN 31.1 pg (27.0-33.0); MEAN CORPUSCULAR HGB CONC 32.9 g/dl (32.0-36.5); MEAN CORPUSCULAR VOLUME 94.6 fl (80.0-96.0); MONO # 0.4 10^3/uL (0.0-0.8); MONO % 6.1 % (0.0-5.0); NEUTROPHILS # 4.7 10^3/uL (1.5-8.5); NEUTROPHILS % 65.5 % (36.0-66.0); PLATELET COUNT, AUTOMATED 286 10^3/uL (150-450); RED BLOOD COUNT 4.66 10^6/uL (4.30-6.10); WHITE BLOOD COUNT 7.2 10^3/uL (4.0-10.0)
[2019-07-21] MEDS ORDERED: MACR100C43 PO (11:25)
[2019-07-21 11:30] VITALS: BP 161/91
== END 2019-07-21 11:30 | disposition home or self-care (01) ==
LOC: M ED 09:20
DX: N39.0 Urinary tract infection, site not specified (principal); E86.0 Dehydration; I10 Essential (primary) hypertension; F33.9 Major depressive disorder, recurrent, unspecified; G47.30 Sleep apnea, unspecified; I48.91 Unspecified atrial fibrillation; I25.2 Old myocardial infarction; N40.0 Benign prostatic hyperplasia without lower urinary tract symptoms; Z95.5 Presence of coronary angioplasty implant and graft; Z79.899 Other long term (current) drug therapy; Z79.01 Long term (current) use of anticoagulants; Z88.0 Allergy status to penicillin; Z88.1 Allergy status to other antibiotic agents; Z88.2 Allergy status to sulfonamides

== ENCOUNTER → 2019-08-14 | Outpatient (REF) | payer MEDICARE, OTHER ==
[~2019-08-14] MED LIST changes: +MACR100C43 PO
[2019-08-14 19:48] LABS: APPEARANCE, URINE MANUAL TURBID (CLEAR); COLOR, URINE MANUAL BROWN (YELLOW)
[2019-08-14 19:49] LABS: BILIRUBIN, URINE MANUAL NEGATIVE (NEGATIVE); BLOOD URINE MANUAL POSITIVE (NEGATIVE); GLUCOSE, URINE (UA) MANUAL NEGATIVE (NEGATIVE); KETONE, URINE MANUAL NEGATIVE (NEGATIVE); LEUKOCYTE ESTERASE, URINE MAN POSITIVE (NEGATIVE); NITRITE, URINE MANUAL POSITIVE (NEGATIVE); PH,URINE MAN 6.5 UNITS (5.0 - 7.0); PROTEIN, URINE MANUAL 3+ mg/dL (NEGATIVE); UROBILINOGEN, URINE MANUAL NORMAL (NORMAL)
[2019-08-14 20:02] LABS: RBC, URINE TNTC /hpf (0-3)
[2019-08-14 20:03] LABS: BACTERIA, URINE SMALL AMOUNT; HYALINE CAST, URINE NONE SEEN /lpf (0-1); SQUAMOUS EPITHELIAL CELL URINE SMALL AMOUNT /hpf (SMALL AMT)
== END ==
LOC: M LAB REF 17:38
PROVIDERS: ATTEND Student in an Organized Health Care Education/Training Program
DX: R39.9 Unspecified symptoms and signs involving the genitourinary system (principal)

== ENCOUNTER → 2019-08-14 | Outpatient (CLI) | payer MEDICARE, OTHER ==
--- NOTE | 2019-08-14 15:20 | REP ---
Left lower extremity Duplex Doppler venous ultrasound: Real time compression and duplex Doppler interrogation of the left lower extremity deep venous system is performed. The left common femoral, superficial femoral and popliteal veins are fully compressible with transducer pressure and demonstrate normal spontaneous and phasic flow, without evidence of deep venous thrombosis. Impression: No evidence of deep venous thrombosis of the left lower extremity femoral popliteal venous system. Electronically Signed by Zachariah Orellana MD 08/14/2019 02:46 P
== END ==
LOC: M RAD 14:07
PROVIDERS: ATTEND Orthopaedic Surgery
DX: M79.605 Pain in left leg (principal); M25.572 Pain in left ankle and joints of left foot; R39.9 Unspecified symptoms and signs involving the genitourinary system

== ENCOUNTER → 2019-08-18 | Outpatient (CLI) | payer MEDICARE, OTHER ==
--- NOTE | 2019-08-18 14:42 | REP ---
MRI LEFT LOWER LEG: TECHNIQUE: Multiple sequences obtained in the axial, coronal, and sagittal planes. There is metallic artifact in the proximal tibia causing adjacent blooming artifact and limiting evaluation of adjacent structures. There is heterogeneous fat saturation on the T2-fat sat images. On the STIR images, no abnormal bone marrow signal is seen. There is no occult fracture involving the tibia or fibula. There is moderate subcutaneous soft tissue edema along the anteromedial margin of the tibia. There is a more mild degree of subcutaneous soft tissue edema elsewhere in the calf. In the deeper soft tissues, there is ill-defined edema scattered centrally in the soft tissues, predominantly involving the muscles of the flexor digitorum longus and flexor hallucis longus as well as the adjacent soleus to a lesser extent. There are small cystic areas of fluid in the medial aspect of the soleus muscle. Three dominant cystic areas of fluid are seen, the largest measures 9 x 4 mm in the midcalf, the other two just inferior to that. There is a tiny amount of fluid in the central fascial planes of the midcalf. No other definite abnormal soft tissue signal is seen. IMPRESSION: No osseous abnormality detected. Subcutaneous soft tissue edema, most significantly along the anteromedial margin of the tibia. There is ill-defined edema in the deep muscles of the midcalf predominantly involving the flexor hallucis longus and flexor digitorum longus muscles and, to a lesser extent, the adjacent soleus muscle. Three subcentimeter cystic areas of fluid are seen in the medial soleus in the midcalf. Tiny amount of fluid is seen in the adjacent fascial planes. Findings suggest inflammatory myopathy or myositis. Traumatic etiology is less likely. Electronically Signed by Zachariah Orellana MD 08/18/2019 05:17 P
== END ==
LOC: M RAD 11:40
PROVIDERS: ATTEND Orthopaedic Surgery
DX: M25.572 Pain in left ankle and joints of left foot (principal)

== ENCOUNTER → 2019-10-31 | Outpatient (REF) | payer MEDICARE, OTHER ==
[2019-10-31 13:27] LABS: FERRITIN 36 NG/ML (26-388); IRON (FE) 71 UG/DL (65-175); PERCENT SATURATION 22.8 % (19.7-50.0); TOTAL IRON BINDING CAPACITY 311 UG/DL (250-450)
[2019-10-31 13:33] LABS: TOTAL 25(OH) VITAMIN D 49.2 NG/ML (30.0-100.0); VITAMIN B12 LEVEL > 2000 PG/ML
[2019-10-31 13:34] LABS: FOLATE > 24.0 NG/ML
== END ==
LOC: M LAB REF 12:18
PROVIDERS: ATTEND Nurse Practitioner Adult Health
DX: K91.2 Postsurgical malabsorption, not elsewhere classified (principal); Z98.84 Bariatric surgery status

== ENCOUNTER → 2020-03-14 | Outpatient (REF) | payer MEDICARE, OTHER ==
[~2020-03-14] MED LIST changes: +VITA-243 PO; -VITA500T PO
[2020-03-14 20:14] LABS: FOLATE > 24.0 NG/ML; VITAMIN B12 LEVEL 1443 PG/ML
== END ==
LOC: M LAB REF 17:23
PROVIDERS: ATTEND Physician Assistant Medical
DX: Z98.84 Bariatric surgery status (principal)

== ENCOUNTER → 2020-03-31 | Outpatient (CLI) | payer MEDICARE, OTHER ==
[2020-03-31 13:39] LABS: BASO % 0.6 % (0.0-1.0); EOS # 0.1 10^3/uL (0.0-0.5); HEMATOCRIT 45.5 % (42.0-52.0); HEMOGLOBIN 14.5 g/dl (13.5-17.5); LYMPH # 1.5 10^3/uL (1.5-5.0); LYMPH % 22.8 % (24.0-44.0); MEAN CORPUSCULAR HEMOGLOBIN 30.1 pg (27.0-33.0); MEAN CORPUSCULAR HGB CONC 31.9 g/dl (32.0-36.5); MEAN CORPUSCULAR VOLUME 94.6 fl (80.0-96.0); MONO # 0.5 10^3/uL (0.0-0.8); MONO % 8.4 % (0.0-5.0); NEUTROPHILS # 4.2 10^3/uL (1.5-8.5); NEUTROPHILS % 65.7 % (36.0-66.0); PLATELET COUNT, AUTOMATED 249 10^3/uL (150-450); RED BLOOD COUNT 4.81 10^6/uL (4.30-6.10); WHITE BLOOD COUNT 6.4 10^3/uL (4.0-10.0)
[2020-03-31 14:01] LABS: ERYTHROCYTE SEDIMENTATION RATE 15 mm/hr (0-20)
--- NOTE | 2020-03-31 17:25 | REP ---
CT LEFT KNEE WITHOUT CONTRAST: CT exam left knee performed without IV contrast. Sagittal and coronal reconstruction images are performed. The study is somewhat limited due to artifact from a total knee prosthesis. Femoral and tibial prosthetic components appear to be in good position. No definite abnormal lucency is seen at the interface between the femoral and tibial prosthetic components and adjacent bone. The osseous structures are intact with no fracture. I see no osseous destruction. There is a small amount of fluid in the suprapatellar region with mild scattered ill-defined calcifications also seen. Electronically Signed by Zachariah Orellana MD 03/31/2020 11:13 P
== END ==
LOC: M RAD 12:54
PROVIDERS: ATTEND Physician Assistant Surgical
DX: M25.562 Pain in left knee (principal); Z96.652 Presence of left artificial knee joint

== ENCOUNTER → 2020-05-08 | Outpatient (CLI) | payer MEDICARE, OTHER | LOC: M LABSMTC 13:00 | PROVIDERS: ATTEND Internal Medicine Cardiovascular Disease | DX: Z11.59 Encounter for screening for other viral diseases (principal) | CPT/HCPCS: C9803; U0003 ==

== ENCOUNTER → 2021-06-05 | Outpatient (CLI) | payer MEDICARE, OTHER ==
[2021-06-05 17:35] LABS: BASO # 0.1 10^3/uL (0.0-0.2); BASO % 0.7 % (0.0-1.0); EOS # 0.1 10^3/uL (0.0-0.5); EOS % 1.8 % (0.0-3.0); HEMATOCRIT 44.6 % (42.0-52.0); HEMOGLOBIN 14.4 g/dl (13.5-17.5); LYMPH # 1.5 10^3/uL (1.5-5.0); LYMPH % 22.3 % (24.0-44.0); MEAN CORPUSCULAR HEMOGLOBIN 30.6 pg (27.0-33.0); MEAN CORPUSCULAR HGB CONC 32.3 g/dl (32.0-36.5); MEAN CORPUSCULAR VOLUME 94.7 fl (80.0-96.0); MONO # 0.5 10^3/uL (0.0-0.8); MONO % 7.9 % (2.0-8.0); NEUTROPHILS # 4.6 10^3/uL (1.5-8.5); NEUTROPHILS % 66.9 % (36.0-66.0); PLATELET COUNT, AUTOMATED 255 10^3/uL (150-450); RED BLOOD COUNT 4.71 10^6/uL (4.30-6.10); WHITE BLOOD COUNT 6.8 10^3/uL (4.0-10.0)
[2021-06-05 18:06] LABS: ERYTHROCYTE SEDIMENTATION RATE 4 mm/hr (0-20)
== END ==
LOC: M PLALAB 14:46
PROVIDERS: ATTEND Physician Assistant
DX: M76.21 Iliac crest spur, right hip (principal); Z79.899 Other long term (current) drug therapy

== ENCOUNTER 2021-12-19 20:39 | Emergency (ER) | payer MEDICARE, OTHER ==
[~2021-12-19] VITALS: Ht 167.6 cm; Wt 79.5 kg
[~2021-12-19 20:39] MED LIST changes: -CYMB60CA3 PO; +CYMB60CA4 PO
[2021-12-19] MEDS ORDERED: OXYMETAZOLINE 0.05% NASAL SPRAY (AFRIN) ONE (21:25)
[2021-12-19 21:55] VITALS: BP 153/89
== END 2021-12-19 22:10 | disposition home or self-care (01) ==
LOC: M ED 20:39
DX: R04.0 Epistaxis (principal); G47.33 Obstructive sleep apnea (adult) (pediatric); I48.91 Unspecified atrial fibrillation; I25.2 Old myocardial infarction; Z79.01 Long term (current) use of anticoagulants; Z88.0 Allergy status to penicillin; Z88.1 Allergy status to other antibiotic agents; Z88.2 Allergy status to sulfonamides; Z88.8 Allergy status to other drugs, medicaments and biological substances

== ENCOUNTER → 2022-03-01 | Outpatient (REF) | payer MEDICARE, OTHER ==
[2022-03-01 17:19] LABS: HEPATITIS B CORE ANTIBODY IGM NEGATIVE (NEGATIVE); HEPATITIS B SURFACE ANTIGEN NEGATIVE (NEGATIVE); HEPATITIS C VIRUS ABY INDEX 0.2 INDEX (<0.8)
== END ==
LOC: M LAB REF 16:08
PROVIDERS: ATTEND Nurse Practitioner Adult Health
DX: R74.01 Elevation of levels of liver transaminase levels (principal); Z79.01 Long term (current) use of anticoagulants; Z79.899 Other long term (current) drug therapy

== ENCOUNTER → 2023-03-03 | Outpatient (CLI) | payer MEDICARE, OTHER | LOC: M PLAIMG 09:37 | PROVIDERS: ATTEND Nurse Practitioner Family | DX: R10.9 Unspecified abdominal pain (principal) ==

== ENCOUNTER → 2024-03-26 | Outpatient (REF) | payer MEDICARE ==
[2024-03-26 18:53] LABS: FERRITIN 17.7 NG/ML (10.5-307.3); IRON (FE) 75 UG/DL (65-175); PERCENT SATURATION 22.3 % (19.7-50.0); PHOSPHORUS LEVEL 2.2 MG/DL (2.4-5.1); TOTAL IRON BINDING CAPACITY 337 UG/DL (250-425)
[2024-03-26 18:55] LABS: VITAMIN B12 LEVEL 920 PG/ML (211-911)
[2024-03-26 19:11] LABS: FOLATE > 24.0 NG/ML (>5.4)
== END ==
LOC: M LAB REF 17:10
PROVIDERS: ATTEND Nurse Practitioner Adult Health
DX: Z98.84 Bariatric surgery status (principal); D50.9 Iron deficiency anemia, unspecified

== ENCOUNTER → 2024-08-29 | Outpatient (CLI) | payer MEDICARE | LOC: M LAB 14:51 | PROVIDERS: ATTEND Nurse Practitioner Acute Care | DX: I48.0 Paroxysmal atrial fibrillation (principal) ==

== ENCOUNTER → 2024-10-02 | Outpatient (REF) | payer MEDICARE | LOC: M LAB REF 13:02 | PROVIDERS: ATTEND Nurse Practitioner Adult Health | DX: I48.0 Paroxysmal atrial fibrillation (principal) ==